=== PATIENT | female | born 1965 | race Caucasian/White ===

== ENCOUNTER → 2022-01-07 | Outpatient (CLI) | payer OTHER | END | disposition home or self-care (01) | LOC: RADMN 14:37 | PROVIDERS: ATTEND Internal Medicine Cardiovascular Disease | DX: I61.9 Nontraumatic intracerebral hemorrhage, unspecified (principal); J34.89 Other specified disorders of nose and nasal sinuses; D64.9 Anemia, unspecified | CPT/HCPCS: 70551 ==